=== PATIENT | male | born 1955 | race Caucasian/White ===

== ENCOUNTER 2016-12-10 06:45 | Inpatient (IN) | payer OTHER ==
[2016-12-01 13:32] VITALS: BMI 27.8
[2016-12-10] MEDS ORDERED: VANCOMYCIN 1,000 MG VIAL (RESTRICTED TO ID ONLY) ONE (08:01)
[2016-12-10] MEDS ORDERED: TRANEXAMIC ACID 1000 MG/10 ML VIAL ONE (08:01)
[2016-12-10] MEDS ORDERED: ROPIVICAINE 0.2%/MORPH PF/KETOROLAC - 51ML DISP.SYRINGE IA ONE ×2 (08:02→12:20)
[2016-12-10] MEDS ORDERED: ONDANSETRON 4 MG/2 ML VIAL IVPUSH PRN (12:54)
[2016-12-10] MEDS ORDERED: oxyCODONE HCL 5 MG TABLET PO PRN (12:55)
[2016-12-10] MEDS ORDERED: LACTATED RINGERS SOLUTION 1,000 ML IV SCH ×2 (13:00→15:00)
[2016-12-10] MEDS ORDERED: ACETAMINOPHEN 325 MG TABLET (FP) ONE (13:34)
[2016-12-10] MEDS ORDERED: TRANEXAMIC ACID 1000 MG/10 ML VIAL IVPB SCH (15:00)
[2016-12-10] MEDS: oxyCODONE HCL 5 MG TABLET PO PRN ×3 (16:19→21:27)
--- NOTE | 2016-12-10 19:59 | OP ---
DATE OF OPERATION: SURGEON: Julio Gomes M.D. ANESTHESIOLOGIST: Dorie Shabazz M.D. CONTRACTOR GENERAL ENGINEERING: Crystal Tellez [facility], whose skilled surgical assistance was necessary for the retraction, protection of vital structures, for the handling and implantation of precise and delicate surgical instrumentation as well as the overall safe conveyance of procedure. PREOPERATIVE DIAGNOSIS: Severe right hip osteoarthritis. POSTOPERATIVE DIAGNOSIS: Severe right hip osteoarthritis. PROCEDURE: Right total hip replacement. BLOOD LOSS: Approximately 50 mL. There were no complications. FLUID GIVEN: Crystalloid. HARDWARE USED: A size 58 Press-Fit acetabular lining, Vendor cup with hole eliminator from [employer], a 36-mm plus 4-mm polyethylene liner, a ceramic 36 mm plus 8.5 mm femoral ball, and a size 12 high offset Corail stem. One gram of tranexamic acid was given preoperatively, second gram was given at the time of wound closure, a third gram was given intraarticularly at the time of wound closure. ANTIBIOTICS: Kefzol was given preoperatively for prophylaxis against infection. Additional Kefzol was given at time of wound closure. Mixture of morphine, bupivacaine, and Toradol were instilled into the hip. Please see the nurse's record for the medication given. COMPLICATIONS: There were no complications. INDICATION: The indication for the patient is a 60-year-old male with severe progressive hip osteoarthritis unrelieved with conservative treatment. Treatment options were reviewed with the patient. Both operative and nonoperative treatments were discussed at length prior to surgery. Patient wished to proceed with surgery. The risks of surgery explained to include but would not be limited to infection, stiffness, continued pain, chance that not all his symptoms will be relieved, chance that should he develop an infection it would be a complete disaster necessitating removing his hip replacement and long-term IV antibiotics and a chance that should infection not be curable, he could be left possibly without a hip replacement and in an unlikely but possible scenario, should he have a life-threatening infection in his hip may require amputation. Chance he may have additional surgery including additional removing his hip, placed on long-term IV antibiotics, therefore with an infectious hip he could have a permanent neurologic injury leading to permanent loss of use of function and permanent pain. Patient understands this. Patient has identified his right hip. He understands the risks, all the risks were explained including risk of blood clot that could spread from his legs to his lungs and even cause , and this can occur despite DVT prophylaxis. Patient understands this. He has identified his right hip as the operative site, which confirmed the operative staff, and he agrees to proceed with the planned procedure. DESCRIPTION OF PROCEDURE: After administration of a paravertebral block in the preoperative holding area, patient was brought into the operating room where spinal anesthetic was administered by anesthesiologist. Patient was then placed on the anterior table, all bony prominences well padded. Fluoroscopic intensifier was brought in to visualize both hips. The right leg was then prepped and draped in the usual sterile manner. Standard anterior approach to the hip was made. Incision was approximately 7 cm in length, just 2 cm lateral and distal to the anterior superior iliac spine, obliquely in line roughly with the interval between the rectus femoris and tensor fascia gia. The incision was carried down to subcutaneous tissues onto the leg fascia. Using electrocautery device and Aquamantys device throughout the procedure to maintain hemostasis. The interval between the rectus femoris and tensor fascia gia was then identified and surgically divided. Retraction was placed to the anteromedial and anterolateral aspect of the hip capsule. The hip capsule through the Aquamantys device. The capsule was then entered in the superolateral corner. Capsulotomy was performed. Retractors were placed around the femoral neck. A neck cutting template was then used, and then neck as cut using a sagittal saw. Head was extracted of obvious severe osteoarthritic changes. Degenerative labrum were then removed. Osteophytes were then removed. The preparation of the femoral canal proceeded with successive reaming up to a size 56 mm reamer. A trial 57 acetabular was then packed in place in neutral vertical-horizontal orientation and approximately 20 degrees of anteversion with excellent purchase on the trial component. The final 58-mm acetabulum was then impacted in place in neutral vertical-horizontal orientation and approximately 20 degrees of anteversion. Excellent purchase. in place. Wounds were irrigated with copious amounts of antibiotic normal saline solution. The final acetabular liner, which is a +4 mm, 36-mm polyethylene liner, was then impacted in place. Our attention was focused on preparation of the femoral canal. AnovaStorm cutter was then used to lateralize the starting position. Successive broaching to a size 12 was then performed. Checking mid way through the broaching seating positioning of the component, the trial components were then reduced with the high offset neck. Various head and neck blanks were trialed and found to have excellent hindu of the patient's offset and leg length using a high offset neck with a plus 8.5 mm femoral ball. The hip was then taken out of the traction apparatus, taken through a range of motion with chest to thigh, where there was no instability. With the hip flexed 90 degrees it was maximally internally rotated without any posterior instability. The hip was then maximally externally rotated and abducted without any appearance of instability. The hip was then placed to traction apparatus. The trial components were removed. The final components were then impacted into place after thorough irrigation. Leg was then taken through a range of motion, found to have equal stability with the final components to that of the trial. Dilute Betadine solution was then instilled in the wound and allowed to sit for 3 minutes. This was then evacuated and then the wound was irrigated with copious amounts of antibiotic normal saline solution. One gram of tranexamic acid and pain cocktail was then instilled into the hip joint itself. The leg fascia was then reapproximated to itself using number 1 Vicryl suture. Subcutaneous tissue was closed with 0 and 2-0 Vicryl sutures. Skin edge was reapproximated with running 3-0 Stratafix suture in a subcuticular fashion. Dermabond was then applied. After the Dermabond had hardened, an Aquacel dressing was applied. During the procedure the patient had thigh-high LAURIE stockings on both legs and a sequential compression device on his nonoperative leg postoperative without DVT prophylaxis with early ambulation, bilateral LAURIE stockings, bilateral compression devices, and aspirin. We are going to discontinue prophylactic antibiotics within 24 hours. We are not going to use a Stuart catheter for fear of causing a dreaded urinary tract infection and with possible spread to the prosthesis. JULIO GOMES M.D. MIGUEL [id number]
--- NOTE | 2016-12-10 20:25 | CONSULT ---
Consultation: REQUESTING PROVIDER: Dr. Salgado CONSULT REQUEST: We have been asked to medically evaluate this patient for ( Medical Management). HISTORY OF PRESENT ILLNESS: This is a 60 y/o man with a past medical history of OA Right Hip, Obesity. s/p R -THR POD#0. Patient is awake, alert and oriented. Patient reports having soreness to his R-Hip, since receiving pain medication. Patient reports having full sensation to his right leg/foot. Patient reports eating and drinking. He voided in the urinal, has not passed flatulence, nor BM. Patient denies fever, chills, cough, dizziness, CAMPBELL, CP, AP, N/V/D, constipation, dysuria. Past Medical History: HTN Hypercholesterolemia CAD [place] 2012 CHF Valvular Heart Disease Past Surgical History Cardiac Stents x3 Social History Tobacco: Former Smoker Alcohol: Wine daily Drugs: Denies Family History Father: CABG, Colon Ca, age 82 Mother: History of Cancer, alive Sister: Lupus Brother: Prostate Ca Allergies Allergy/AdvReac Type Severity Reaction Status Date / Time No Known Allergies Allergy Verified 12/10/16 07:34 Home Medications Medication Instructions Recorded Aspirin [Aspirin EC] 81 mg PO DAILY 12/01/16 Atorvastatin Ca [Lipitor] 10 mg PO HS 12/01/16 Ibuprofen [Advil -] 200 mg PO PRN PRN 12/01/16 Metoprolol Succinate [Toprol Xl -] 50 mg PO DAILY 12/01/16 REVIEW OF SYSTEMS: CONSTITUTIONAL: Absent: fever, chills, diaphoresis, generalized weakness, malaise, loss of appetite, weight change HEENT: Absent: rhinorrhea, nasal congestion, throat pain, throat swelling, difficulty swallowing, mouth swelling, ear pain, eye pain, visual changes CARDIOVASCULAR: Absent: chest pain, syncope, palpitations, irregular heart rate, lightheadedness , peripheral edema RESPIRATORY: Absent: cough, shortness of breath, dyspnea with exertion, orthopnea, wheezing, stridor, hemoptysis GASTROINTESTINAL: Absent: abdominal pain, abdominal distension, nausea, vomiting, diarrhea, constipation, melena, hematochezia GENITOURINARY: Absent: dysuria, frequency, urgency, hesitancy, hematuria, flank pain, genital pain MUSCULOSKELETAL: Right hip pain Absent: myalgia, arthralgia, joint swelling, back pain, neck pain SKIN: Absent: rash, itching, pallor HEMATOLOGIC/IMMUNOLOGIC: Absent: easy bleeding, easy bruising, lymphadenopathy, frequent infections ENDOCRINE: Absent: unexplained weight gain, unexplained weight loss, heat intolerance, cold intolerance NEUROLOGIC: Absent: headache, focal weakness or paresthesias, dizziness, unsteady gait, seizure, mental status changes, bladder or bowel incontinence PSYCHIATRIC: Absent: anxiety, depression, suicidal or homicidal ideation, hallucinations. PHYSICAL EXAMINATION Vital Signs - 24 hr 12/10/16 12/10/16 12/10/16 07:20 07:34 12:50 Temperature 98.0 F 98.1 F Pulse Rate 80 82 Respiratory 16 16 Rate Blood Pressure 154/92 124/82 O2 Sat by Pulse 96 98 Oximetry (%) 12/10/16 12/10/16 12/10/16 12:55 13:00 13:05 Temperature Pulse Rate 75 71 75 Respiratory 15 16 16 Rate Blood Pressure 122/70 120/70 130/72 O2 Sat by Pulse 97 98 97 Oximetry (%) 12/10/16 12/10/16 12/10/16 13:10 13:25 13:40 Temperature 97 F L Pulse Rate 70 72 74 Respiratory 13 15 16 Rate Blood Pressure 127/70 123/72 132/77 O2 Sat by Pulse 97 98 99 Oximetry (%) 12/10/16 12/10/16 12/10/16 13:55 14:05 15:41 Temperature 98.1 F 97.5 F L Pulse Rate 73 73 75 Respiratory 16 16 18 Rate Blood Pressure 126/73 126/73 124/74 O2 Sat by Pulse 98 95 Oximetry (%) GENERAL: Awake, alert, and fully oriented, in no acute distress. HEAD: Normal with no signs of trauma. EYES: Pupils equal, round and reactive to light, extraocular movements intact, sclera anicteric, conjunctiva clear. No lid lag. EARS, NOSE, THROAT: Ears normal, nares patent, oropharynx clear without exudates. Moist mucous membranes. NECK: Normal range of motion, supple without lymphadenopathy, JVD, or masses. LUNGS: Breath sounds equal, clear to auscultation bilaterally. No wheezes, and no crackles. No accessory muscle use. HEART: Regular rate and rhythm, normal S1 and S2 without murmur, rub or gallop. ABDOMEN: Soft, nontender, not distended, normoactive bowel sounds, no guarding, no rebound, no masses. No hepatomegaly or splenomegaly. MUSCULOSKELETAL: Normal range of motion at RUE, LUE, LLE joints. No bony deformities. No CVA tenderness. LROM RLE.+ Right lateral hip tenderness+ice pack , DSD dry and intact UPPER EXTREMITIES: 2+ pulses, warm, well-perfused. No cyanosis. No clubbing. Cap refill <2 seconds. No peripheral edema. LOWER EXTREMITIES: 2+ pulses, warm, well-perfused. No calf tenderness. No peripheral edema. NEUROLOGICAL: Cranial nerves II-XII intact. Normal speech. Gait not observed. PSYCHIATRIC: Cooperative. Good eye contact. Appropriate mood and affect. SKIN: Warm, dry, normal turgor, no rashes or lesions noted. Active Medications Generic Name Dose Route Start Last Admin Trade Name Freq PRN Reason Stop Dose Admin Acetaminophen 650 mg 12/10/16 13:30 Tylenol - PO 12/13/16 13:29 Q6H [facility] Ascorbic Acid 500 mg 12/10/16 22:00 Vitamin C - PO BID [facility] Aspirin 325 mg 12/11/16 08:00 Asa - PO 12/14/16 08:01 DAILY@0800 [facility] Celecoxib 200 mg 12/10/16 22:00 Celebrex - PO BID [facility] Fentanyl 50 mcg 12/10/16 12:54 Sublimaze Injection - IVPUSH 12/13/16 12:55 [id number] PRN PAIN Ferrous Sulfate 325 mg 12/10/16 22:00 Feosol - PO BID [facility] Gabapentin 300 mg 12/10/16 22:00 Neurontin - PO BID [facility] Cefazolin Sodium/Dextrose 50 mls @ 100 mls/hr 12/10/16 21:00 Ancef 2 Gm Premixed Ivpb - IVPB 12/11/16 05:29 Q8H [facility] Lactated Ringer's 1,000 mls @ 125 mls/hr 12/10/16 15:00 Lactated Ringers Solution IV 12/11/16 06:00 ASDIR [facility] Metoprolol Succinate 50 mg 12/11/16 10:00 Toprol Xl - PO DAILY [facility] Oxycodone HCl 5 mg 12/10/16 12:55 Roxicodone - PO Q3H PRN PAIN LEVEL 1-5 Oxycodone HCl 10 mg 12/10/16 12:55 12/10/16 18:25 Roxicodone - PO 10 mg Q3H PRN Administration PAIN LEVEL 6-10 Tranexamic Acid 1,000 mg 12/10/16 15:00 12/10/16 15:45 Tranexamic Acid - IVPB 1,000 mg ONCE MIRIAN Administration ASSESSMENT/PLAN: Dispo: We will continue to follow the patient. Thank you for this consultative opportunity. Problem List - Problems (1) Status post total replacement of right hip Assessment/Plan: - Continue Ortho regimen - Monitor CBC, BMP - Incentive Spirometer - PT Code(s): Z96.641 - PRESENCE OF RIGHT ARTIFICIAL HIP JOINT (2) CAD (coronary artery disease) Assessment/Plan: - s/p Stent placement x3 - Continue Asa Code(s): I25.10 - ATHSCL HEART DISEASE OF [place] CORONARY ARTERY W/O ANG PCTRS (3) Valvular heart disease Code(s): I38 - ENDOCARDITIS, VALVE UNSPECIFIED (4) HTN (hypertension) Assessment/Plan: - Continue Lopressor with parameters - Monitor renal function Code(s): I10 - ESSENTIAL (PRIMARY) HYPERTENSION (5) Hypercholesteremia Assessment/Plan: - Continue Lipitor Code(s): E78.00 - PURE HYPERCHOLESTEROLEMIA, UNSPECIFIED (6) DVT prophylaxis Assessment/Plan: - OOB - SCDs - Code(s): BJB0494 - Visit type - Emergency Visit Emergency Visit: No - New Patient This patient is new to me today: Yes Date on this admission: 12/11/16 - Critical Care Critical Care patient: No
[2016-12-10] MEDS: GABAPENTIN 300 MG CAPSULE (FP) PO SCH (21:24)
[2016-12-10] MEDS: ASCORBIC ACID 500 MG TABLET (FP) PO SCH (21:24)
[2016-12-10] MEDS: CEFAZOLIN 2 GM/D5W 50 ML IVPB SCH (21:24)
[2016-12-10] MEDS: FERROUS SO4 325 MG TABLET (FP) PO SCH (21:24)
[2016-12-10] MEDS: CELECOXIB 200 MG CAPSULE PO SCH (21:24)
[2016-12-11] MEDS: oxyCODONE HCL 5 MG TABLET PO PRN ×5 (00:32→19:52)
[2016-12-11] MEDS: ACETAMINOPHEN 325 MG TABLET (FP) PO SCH ×3 (00:33→19:53)
[2016-12-11] MEDS: CEFAZOLIN 2 GM/D5W 50 ML IVPB SCH (05:00)
--- NOTE | 2016-12-11 07:39 | PN ---
Physical Exam: SUBJECTIVE: Patient seen and examined. Has some upper thigh pain/swelling but is doing PT. OBJECTIVE: Vital Signs Period Temp Pulse Resp BP Sys/Christ[place]on Pulse Ox Last 24 Hr 97 F-98.1 F 70-92 13-18 107-132/61-82 95-99 GENERAL: The patient is awake, alert, and fully oriented, in no acute distress. HEAD: Normal with no signs of trauma. EYES: PERRL, extraocular movements intact, sclera anicteric, conjunctiva clear. No ptosis. ENT: Ears normal, nares patent, oropharynx clear without exudates, moist mucous membranes. NECK: Trachea midline, full range of motion, supple. LUNGS: Breath sounds equal, clear to auscultation bilaterally, no wheezes, no crackles, no accessory muscle use. HEART: Regular rate and rhythm, S1, S2 without murmur, rub or gallop. ABDOMEN: Soft, nontender, nondistended, normoactive bowel sounds, no guarding, no rebound, no hepatosplenomegaly, no masses. EXTREMITIES: 2+ pulses, warm, well-perfused, no edema. NEUROLOGICAL: Cranial nerves II through XII grossly intact. Normal speech, gait not observed. PSYCH: Normal mood, normal affect. SKIN: Warm, dry, normal turgor, no rashes or lesions noted. Incision clean, dry , intact. Active Medications Generic Name Dose Route Start Last Admin Trade Name Freq PRN Reason Stop Dose Admin Acetaminophen 650 mg 12/10/16 13:30 12/11/16 00:33 Tylenol - PO 12/13/16 13:29 650 mg Q6H MIRIAN Administration Ascorbic Acid 500 mg 12/10/16 22:00 12/10/16 21:24 Vitamin C - PO 500 mg BID MIRIAN Administration Aspirin 325 mg 12/11/16 08:00 Asa - PO 12/14/16 08:01 DAILY@0800 [facility]IRIAN Celecoxib 200 mg 12/10/16 22:00 12/10/16 21:24 Celebrex - PO 200 mg BID MIRIAN Administration Fentanyl 50 mcg 12/10/16 12:54 Sublimaze Injection - IVPUSH 12/13/16 12:55 [id number] PRN PAIN Ferrous Sulfate 325 mg 12/10/16 22:00 12/10/16 21:24 Feosol - PO 325 mg BID MIRIAN Administration Gabapentin 300 mg 12/10/16 22:00 12/10/16 21:24 Neurontin - PO 300 mg BID MIRIAN Administration Metoprolol Succinate 50 mg 12/11/16 10:00 Toprol Xl - PO DAILY MIRIAN Oxycodone HCl 5 mg 12/10/16 12:55 Roxicodone - PO Q3H PRN PAIN LEVEL 1-5 Oxycodone HCl 10 mg 12/10/16 12:55 12/11/16 06:34 Roxicodone - PO 10 mg Q3H PRN Administration PAIN LEVEL 6-10 Tranexamic Acid 1,000 mg 12/10/16 15:00 12/10/16 15:45 Tranexamic Acid - IVPB 1,000 mg ONCE MIRIAN Administration ASSESSMENT/PLAN: 60 year old male with history of CAD s/p ME and stents, HTN, HLD, CHF, valvular heart disease POD #1 s/p THR. 1. THR -PT -Pain control -Hip precautions -DVT ppx 2. HTN -BP at goal -Continue Toprol 3. CAD, CHF -No active issues, euvolemic -Continue ASA 4. DVT ppx -ASA -SCDs -PT Discharge planning per orthopedics. We will continue to follow the patient. Thank you for the consultative opportunity. Visit type - Emergency Visit Emergency Visit: No - New Patient This patient is new to me today: Yes Date on this admission: 12/10/16 - Critical Care Critical Care patient: No
[2016-12-11 08:21] LABS: MCH 29.8 pg (25.7-33.7); MCHC 33.6 g/dl (32.0-35.9); MEAN CELL VOLUME 88.5 fl (80-96); MEAN PLT VOLUME 8.7 fl (7.5-11.1); PLATELET COUNT 175 K/MM3 (134-434); RDW 12.4 % (11.9-15.9); WHITE BLOOD COUNT 14.5 K/mm3 (4.0-10.8)
[2016-12-11 08:26] LABS: ANION GAP 7 (8-16); CALCIUM 8.9 mg/dl (8.4-10.2); CO2 24 mmol/L (22-28); CREATININE 0.7 mg/dl (0.6-1.3); GLUCOSE,RANDOM 166 mg/dl (74-106)
--- NOTE | 2016-12-11 09:12 | PN ---
Progress Note, Physician History of Present Illness: He feels well. Sitting in a chair. Pain well controlled. PT did not come yet - Current Medication List Current Medications: Active Medications Acetaminophen (Tylenol -) 650 mg PO Q6H [facility] Stop: 12/13/16 13:29 Last Admin: 12/11/16 00:33 Dose: 650 mg Ascorbic Acid (Vitamin C -) 500 mg PO BID [facility] Last Admin: 12/10/16 21:24 Dose: 500 mg Aspirin (Asa -) 325 mg PO DAILY@0800 [facility] Stop: 12/14/16 08:01 Celecoxib (Celebrex -) 200 mg PO BID [facility] Last Admin: 12/10/16 21:24 Dose: 200 mg Fentanyl (Sublimaze Injection -) 50 mcg IVPUSH [id number] PRN PRN Reason: PAIN Stop: 12/13/16 12:55 Ferrous Sulfate (Feosol -) 325 mg PO BID [facility] Last Admin: 12/10/16 21:24 Dose: 325 mg Gabapentin (Neurontin -) 300 mg PO BID [facility] Last Admin: 12/10/16 21:24 Dose: 300 mg Metoprolol Succinate (Toprol Xl -) 50 mg PO DAILY [facility] Oxycodone HCl (Roxicodone -) 5 mg PO Q3H PRN PRN Reason: PAIN LEVEL 1-5 Oxycodone HCl (Roxicodone -) 10 mg PO Q3H PRN PRN Reason: PAIN LEVEL 6-10 Last Admin: 12/11/16 06:34 Dose: 10 mg Tranexamic Acid (Tranexamic Acid -) 1,000 mg IVPB ONCE [facility] Last Admin: 12/10/16 15:45 Dose: 1,000 mg - Objective Vital Signs: Vital Signs Temperature 97.8 F 12/11/16 06:00 Pulse Rate 83 12/11/16 06:00 Respiratory Rate 18 12/11/16 06:00 Blood Pressure 107/68 12/11/16 06:00 O2 Sat by Pulse Oximetry (%) 95 12/11/16 06:42 Constitutional: Yes: Well Nourished, No Distress, Calm Musculoskeletal: Yes: Other (Dressing CDI, No sign of infection. Mild tenderness of the right hip. Compartments soft. No calf tenderness, Neg jakub's sign, NVID.) Labs: CBC, BMP 12/11/16 07:30 12/11/16 07:30 Assessment/Plan POD #1 s/p Right CRUZ, doing well -PT WBAT -Pain control -DVT Prophylaxis -Dispo planning
[2016-12-11] MEDS: ASPIRIN 325 MG TABLET PO SCH (09:25)
[2016-12-11] MEDS: FERROUS SO4 325 MG TABLET (FP) PO SCH ×2 (09:27→22:06)
[2016-12-11] MEDS: GABAPENTIN 300 MG CAPSULE (FP) PO SCH ×2 (09:28→22:06)
[2016-12-11] MEDS: ASCORBIC ACID 500 MG TABLET (FP) PO SCH ×2 (09:28→22:06)
[2016-12-11] MEDS: CELECOXIB 200 MG CAPSULE PO SCH ×2 (09:28→22:06)
[2016-12-11] MEDS: METOPROLOL SUCCINATE 50 MG TAB.SR.24H (FP) PO SCH (09:30)
[2016-12-11] MEDS ORDERED: METOPROLOL SUCCINATE 50 MG TAB.SR.24H (FP) PO SCH (10:00)
--- NOTE | 2016-12-11 11:42 | PN ---
Progress Note (short form) - Note Progress Note: 60M POD1 s/p right anterior THR under spinal anesthetic and paravertebral nerve block for post operative pain. Pt is doing well, reports that pain is well controlled with oral pain meds after block wore off early this morning. Pt denies anesthetic complications. Sensory and motor function intact in bilateral lower extremities.
[2016-12-11] MEDS ORDERED: ATORVASTATIN CA 10 MG TABLET (FP) PO SCH (22:00)
[2016-12-11 22:26] VITALS: TEMP 98.1
[2016-12-12] MEDS: ACETAMINOPHEN 325 MG TABLET (FP) PO SCH ×2 (01:35→08:03)
[2016-12-12] MEDS: oxyCODONE HCL 5 MG TABLET PO PRN ×2 (01:35→10:08)
[2016-12-12 06:33] VITALS: BP 132/74; PULSE 79
[2016-12-12] MEDS: ASPIRIN 325 MG TABLET PO SCH (08:03)
[2016-12-12 08:27] LABS: MCH 30.8 pg (25.7-33.7); MEAN CELL VOLUME 90.5 fl (80-96); MEAN PLT VOLUME 8.9 fl (7.5-11.1); PLATELET COUNT 136 K/MM3 (134-434); RDW 12.5 % (11.9-15.9); WHITE BLOOD COUNT 7.9 K/mm3 (4.0-10.8)
[2016-12-12] MEDS: CELECOXIB 200 MG CAPSULE PO SCH (10:08)
[2016-12-12] MEDS: FERROUS SO4 325 MG TABLET (FP) PO SCH (10:09)
[2016-12-12] MEDS: GABAPENTIN 300 MG CAPSULE (FP) PO SCH (10:09)
[2016-12-12] MEDS: ASCORBIC ACID 500 MG TABLET (FP) PO SCH (10:10)
[2016-12-12] MEDS: METOPROLOL SUCCINATE 50 MG TAB.SR.24H (FP) PO SCH (10:10)
--- NOTE | 2016-12-12 19:30 | PATH ---
Surgical Pathology Report Patient Name: SIS HYATT Med. Rec. #: [id number] /Age/Gender: 1955 (Age: 60) / M Account: [id number] Location: COUNTS INCLUDE 234 BEDS AT THE [facility] MED-SURG Taken: 12/10/2016 Received: 12/10/2016 Reported: 12/12/2016 Physicians: Jimbo Salgado M.D. Specimen(s) Received RIGHT FEMUR HEAD Clinical History Right hip osteoarthritis Final Diagnosis FEMORAL HEAD, RIGHT, TOTAL HIP REPLACEMENT: DEGENERATIVE JOINT DISEASE. Electronically Signed Samantha Gillette M.D. Gross Description Received in formalin labelled "right femur head" is a 5.8 x 5.8 x 5.3 cm portion of bone consistent with a femoral head. The bone at the femoral neck is firm and uniform. The articular cartilage is markedly irregular and there is a 5.3 x 4.0 cm area of eburnation. Bony spurring is noted at the periphery. Radio Engineer sections are submitted in one cassette for decalcification. See gross JENIFER/12/11/2016 [facility]/12/11/2016
== END 2016-12-12 13:45 | disposition home health service (06) | DRG 301 ==
LOC: FM/S 06:45
PROVIDERS: ADMIT Orthopaedic Surgery; ATTEND Orthopaedic Surgery
PROC: 0SR904Z Replacement of Right Hip Joint with Ceramic on Polyethylene Synthetic Substitute, Open Approach (ICD-10-PCS; principal; 2016-12-10 10:51)
DX: M16.11 Unilateral primary osteoarthritis, right hip (principal); E78.00 Pure hypercholesterolemia, unspecified; I25.10 Atherosclerotic heart disease of native coronary artery without angina pectoris; I25.2 Old myocardial infarction; I11.0 Hypertensive heart disease with heart failure; Z95.5 Presence of coronary angioplasty implant and graft
CPT/HCPCS: 36415; 73502-TC-RT; 73523-TC; 76001-TC; 80048; 85027; 88304-TC; 88311-TC; 94010; 94760; 97010-GP; 97116-GP; 97161-GP

== ENCOUNTER 2022-01-03 05:05 | Day surgery (SDC) | payer OTHER, MEDICARE ==
[2022-01-01 14:22] VITALS: BMI 31.6
[2022-01-03 08:30] VITALS: TEMP 98
[2022-01-03 08:59] VITALS: RESP 16
[2022-01-03 09:16] VITALS: BP 138/80; PULSE 60
== END 2022-01-03 09:25 | disposition home or self-care (01) ==
LOC: JASU-ENDO 05:05
PROVIDERS: ATTEND Internal Medicine Gastroenterology
PROC: 0DBP8ZZ Excision of Rectum, Via Natural or Artificial Opening Endoscopic (ICD-10-PCS; 2022-01-03)
PROC: 0DBL8ZX Excision of Transverse Colon, Via Natural or Artificial Opening Endoscopic, Diagnostic (ICD-10-PCS; principal; 2022-01-03 08:00)
DX: Z12.11 Encounter for screening for malignant neoplasm of colon (principal); D12.3 Benign neoplasm of transverse colon; D12.8 Benign neoplasm of rectum; K57.30 Diverticulosis of large intestine without perforation or abscess without bleeding; I10 Essential (primary) hypertension
CPT/HCPCS: 88305-TC

== ENCOUNTER 2022-12-18 15:26 | Emergency (ER) | payer OTHER, MEDICARE ==
[2022-12-18 16:19] VITALS: BP 142/78; PULSE 81; RESP 18; TEMP 98.7; BMI 30.7
[2022-12-18 16:58] LABS: HEMATOCRIT 40.3 % (35.4-49); HEMOGLOBIN 13.7 G/dL (11.7-16.9); MCH 30.9 pg (25.7-33.7); MCHC 34.1 g/dl (32.0-35.9); MEAN CELL VOLUME 90.8 fl (80-96); MEAN PLT VOLUME 9.3 fl (7.5-11.1); PLATELET COUNT 185.2 10^3/uL (134-434); RBC 4.44 10^6/uL (4.00-5.60); RDW 14.1 % (11.9-15.9); WHITE BLOOD COUNT 9.6 10^3/uL (4.0-10.8)
[2022-12-18 17:01] LABS: PLATELET ESTIMATE ADEQUATE
[2022-12-18 17:05] LABS: ALBUMIN 4.8 g/dl (3.4-5.0); BLOOD UREA NITROGEN 20.6 mg/dl (7-18); CALCIUM 9.6 mg/dl (8.5-10.1); CREATININE 0.8 mg/dl (0.6-1.3); POTASSIUM 4.1 mmol/L (3.5-5.1); SGOT/AST 24.6 U/L (15-37); SGPT/ALT 34.9 U/L (7-52); TOT PROT 7.2 g/dl (6.4-8.2)
[2022-12-18 17:38] LABS: BILIRUBIN,TOTAL 0.6 mg/dL (0.2-1)
[2022-12-18] MEDS ORDERED: CIPROFLOXACIN 250 MG TABLET (RESTRICTED TO ID) PO ONE (21:06)
[2022-12-18] MEDS ORDERED: CIPROFLOXACIN 500 MG TABLET (RESTRICTED TO ID) PO ONE (21:07)
== END 2022-12-18 21:38 | disposition home or self-care (01) ==
LOC: FER 15:26
PROC: 0T9B70Z Drainage of Bladder with Drainage Device, Via Natural or Artificial Opening (ICD-10-PCS; principal; 2022-12-18)
DX: R31.0 Gross hematuria (principal); R33.9 Retention of urine, unspecified; N13.30 Unspecified hydronephrosis; N32.9 Bladder disorder, unspecified; R35.0 Frequency of micturition; R39.15 Urgency of urination
CPT/HCPCS: 36415; 74177-TC; 76775-TC; 80053; 81003; 81015; 85027; 87086; 99285-25; Q9967

== ENCOUNTER 2022-12-20 16:56 | Emergency (ER) | payer OTHER, MEDICARE ==
[2022-12-20 17:04] VITALS: BP 144/71; PULSE 85; RESP 18; TEMP 98.9; BMI 30.7
== END 2022-12-20 17:55 | disposition home or self-care (01) ==
LOC: FER 16:56
PROC: 0T2BX0Z Change Drainage Device in Bladder, External Approach (ICD-10-PCS; principal; 2022-12-20)
DX: T83.091A Other mechanical complication of indwelling urethral catheter, initial encounter (principal); R33.9 Retention of urine, unspecified; R10.33 Periumbilical pain
CPT/HCPCS: 99283-25

== ENCOUNTER 2022-12-24 00:22 | Emergency (ER) | payer OTHER, MEDICARE ==
[2022-12-24 00:43] VITALS: BP 160/78; PULSE 72; RESP 18; TEMP 97.9; BMI 30.7
== END 2022-12-24 01:05 | disposition home or self-care (01) ==
LOC: FER 00:22
PROC: 0T9B70Z Drainage of Bladder with Drainage Device, Via Natural or Artificial Opening (ICD-10-PCS; principal; 2022-12-24)
DX: R33.9 Retention of urine, unspecified (principal)
CPT/HCPCS: 99283-25